=== PATIENT | female | born 1960 | race Caucasian/White ===

== ENCOUNTER 2020-04-13 07:10 | Day surgery (SDC) | payer OTHER ==
[2020-04-13] MEDS ORDERED: CLINDAMYCIN INJ 900 MG in NA CHLORIDE 0.9% 50 ML IV ONE (07:30)
[2020-04-13] MEDS ORDERED: CLINDAMYCIN 900MG/D5W 900 MG/50 ML IVPB IV ONE (07:56)
[2020-04-13] MEDS: Ringers Lactate 1,000 ML IV ONE ×2 (07:58→08:30)
[2020-04-13] MEDS ORDERED: propofoL 200 MG/20 ML VIAL IV ONE (08:25)
[2020-04-13] MEDS ORDERED: FENTANYL CITR 100 MCG/2 ML ONE (08:25)
[2020-04-13] MEDS ORDERED: MIDAZOLAM HCL 2 MG/2 ML INJ ONE (08:26)
[2020-04-13] MEDS ORDERED: LIDOCAINE 1% MPF 5 ML VIAL ONE (08:26)
[2020-04-13] MEDS ORDERED: BUPIVACA 0.25%/EPI 0.0005%/PF 30 ML VIAL ONE (08:31)
[2020-04-13] MEDS ORDERED: dexAMETHasone 10 MG/ML VIAL ONE (09:02)
--- NOTE | 2020-04-13 09:06 | P.OP ---
Preoperative diagnosis: RIGHT Knee Ganglion Cyst Postoperative diagnosis: RIGHT Knee Ganglion Cyst Primary procedure: Wide Excision of RIGHT Knee Ganglion Cyst Secondary procedure: Layered Closure Anesthesia: GETA + Local Estimated blood loss: <5cc Specimen: Knee Cyst Findings: Ganglion cyst of RIGHT knee Complications: None Transferred to: Recovery Room Condition: Good
[2020-04-13] MEDS ORDERED: KETOROLAC 30 MG/ML INJ ONE (09:10)
[2020-04-13] MEDS ORDERED: ONDANSETRON 4 MG/2 ML VIAL ONE (09:10)
[2020-04-13 09:38] VITALS: O2SAT 95
[2020-04-13 11:09] VITALS: BP 139/79; TEMP 96.5
--- NOTE | 2020-04-13 11:10 | OP ---
Date of Procedure: 04/13/2020 Surgeon: Dewayne Grewal MD, Preoperative Diagnosis: Right knee ganglion cyst. Postoperative Diagnosis: Right knee ganglion cyst. Procedure Performed: 1.Wide excision of right ganglion cyst. 2.Multilayered closure. Anesthesia: General endotracheal plus local with 0.25% Marcaine with epinephrine. Estimated Blood Loss: Less than 5 mL. Specimen: Knee cyst consistent with ganglion cyst. Findings: Ganglion cyst of the right knee approximately 2 cm x 2.5 cm in size. Disposition: The patient transferred to recovery room in good condition. Procedure In Detail: After informed consent was obtained, the patient was brought to the operating r oom, prepped and draped in the usual sterile fashion. After adequate anesthesia was achieved, an are a of the medial aspect of the right knee was anesthetized with 0.25% Marcaine, sharply incised and a ganglion cyst was encountered. This was circumferentially dissected intact using both blunt dissecti on and electrocautery. The cyst was found to be approximately 2.5 x 2 cm, it was removed and sent of f for pathologic examination. The area was copiously irrigated multiple times. Hemostasis was achie leeann with electrocautery. Deep dermal layers were closed with interrupted 3-0 Vicryl and skin was tavares sed with 4-0 Monocryl in a running fashion. Dermabond placed over top. The patient tolerated the pr ocedure well without complication, transferred to PACU in good condition. All counts were correct at the end of t he case. TARIK/GEORGINA Voice ID: [id number] Report ID: [id number]
--- OUTSIDE RECORDS SUMMARY | 2020-04-16 02:36 | XMS REPORT | Clinical Summary ---
:1960 Author Organization [facility] Address [address] [place] [address] Care Team Providers Name Role Phone SAVANNA White Primary Care Provider Allergies Not on File Medications Not on file Active Problems Not on file Social History Tobacco Use Types Packs/Day Years Used Date Never Assessed Sex Assigned at Date Recorded Not on file Last Filed Vital Signs Not on file Plan of Treatment Health Maintenance Due Date Last Done Comments CERVICAL CANCER SCREENING 11/06/1983 BREAST CANCER SCREENING 2012 COLONOSCOPY SCREENING 2012 SHINGLES VACCINES (#1) 2012 INFLUENZA VACCINE 02/08/2020 Results Not on fileafter 04/15/2019 Advance Directives For more information, please contact: [phone] Type Date Recorded Patient Shift Superintendent Caustic Cresylate Explanati on Advance Directives, Living Will and Medical Power of Composite Engineer
--- OUTSIDE RECORDS SUMMARY | 2020-04-16 02:36 | XMS REPORT | Continuity of Care Document ---
:1960 Author Organization [facility] Care Team Providers Name Role Phone [facility] Unavailable Un available Problems Problem Status Onset Classification Date Comments Sourc e Date Reported Z87.891 - Active [facility] HISTORY OF NICOTINE D Medications No Data Provided for This Section Allergies, Adverse Reactions, Alerts No Known Medication Allergies Immunizations No Data Provided for This Section Results No Data Provided for This Section Pathology Reports No Data Provided for This Section Diagnostic Reports Report Value Date Source CT Low Dose Lung LUNG SCREENING LOW-DOSE CT THORAX WITHOUT CONTR AST 05/24/2019 [facility] [place] Screening HISTORY: Asymptomatic patien t meeting high-risk criteria for lung screening. Exam: Baseline. COMPARISON: None. TECHNIQUE: Noncontrast, volu metric low-dose CT Chest. This exam was performed according to our departmental dose-optimization program which includes automated exposure control, adjustment of the mA and/ or kV according to patient s ize and/or use of iterative reconstruction technique. IV Contrast: None. DLP: 155 mGy-cm FINDINGS: LUNG NODULES: Detailed below. 1. R lung, 4.3 mm solid, sl ice # 85 on Centricity PACS and slice 92 on DynaCAD PACS 2. R lung, 4 mm solid, slic e # 99 on Centricity PACS and slice 78 on DynaCAD PACS 3. R lung, 3.4 mm solid, sl ice # 26 on Centricity PACS and slice 151 on DynaCAD PACS 4. R lung, 2.7 mm solid, sl ice # 102 on Centricity PACS and slice 75 on DynaCAD PACS Other Lung findings: There a re additional very small, ill-defined, centrilobular nodules within the bilateral upper lobes, right greater than left. There are areas of pleural thickening and adjacent ple ural-parenchymal scarring within the peripheral left upper and lower lobes. Aorta: There is ectasia of t he ascending thoracic aorta with the mid-ascending thoracic aorta measuring up to 4.1 cm in diameter (series 2, image 66). There is atherosclerotic calcification of the aorta. Heart / Pericardium: Unremarkable. Adenopathy: No significant findings. Base of Neck: No significant findings. Upper Abdomen: No significant findings. Osseous structures: No suspicious osteolytic or osteoblastic lesions. LUNG-RADS CATEGORY AND IMPRESSION: 1. Multiple small pulmonary nodules as detailed above. 2. Additional very small, il l-defined, centrilobular nodules within the bilateral upper lobes, right greater than left, which are nonspecific with differential including, but not limited to, smoking-rel ated respiratory bronchiolit is interstitial lung disease (RB-ILD), hypersensitivity pneumonitis, or endobronchial spread of infectious process. 3. Areas of pleural thickeni ng and adjacent pleural-parenchymal scarring within the peripheral left upper and lower lobes. 4. Ectasia of the ascending thoracic aorta with the mid-ascending thoracic aorta measuring up to 4.1 cm in diameter. Given the size of the ascending thoracic aorta, annual CT angiogram or MR angiogram i s recommended according to AHA, STS, ACR, and SI R consensus guidelines. ACR LUNG-RADS Category 2: Ne gative, benign findings with no evidence of malignancy. Suggest next LDCT in 12 months if age still less than 77 years. Category S (Other findings w hich may require urgent additional evaluation): None. Consultation Notes No Data Provided for This Section Discharge Summaries No Data Provided for This Section History and Physicals No Data Provided for This Section Vital Signs No Data Provided for This Section Encounters Location Location Encounter Encounter Reason Attending ADM [place] Stat Source Details Type Number For Provider Date Date Visit [facility] Outpt Diag [id number] Kimberly 05/24 05/25 [facility] [place] Procedures No Data Provided for This Section Assessment and Plan No Data Provided for This Section Plan of Care No Data Provided for This Section Social History Social History Date Source Social History TypeResponse 05/25/2019 [facility] [place] Family History No Data Provided for This Section Advance Directives No Data Provided for This Section Functional Status No Data Provided for This Section
== END 2020-04-13 10:35 | disposition home or self-care (01) ==
LOC: OR 07:10
PROVIDERS: ATTEND Surgery
PROC: 0SBC0ZZ Excision of Right Knee Joint, Open Approach (ICD-10-PCS; principal; 2020-04-13 08:30)
DX: D36.7 Benign neoplasm of other specified sites (principal); Z20.828 Contact with and (suspected) exposure to other viral communicable diseases
CPT/HCPCS: 88305; 27347; U0002; J2704; J2250; J3010; J1100; J7120; J2405; 88304

== ENCOUNTER 2023-09-05 07:00 | Day surgery (SDC) | payer OTHER ==
[2023-09-01 14:00] LABS: Absolute Lymphocytes (CBC) 1.2 K/uL (0.7-4.9); Hematocrit 47.9 % (36.0-45.0); Lymphocytes % 15.3 % (15.3-44.8); MCV 93.6 fL (80-100); Platelets 170 thou/uL (152-406); RBC Red Blood Cell Count 5.12 M/uL (3.86-4.86)
[2023-09-01 14:04] LABS: Potassium 3.3 mEq/L (3.5-5.1)
[2023-09-01 14:19] LABS: Protime INR 0.99
--- NOTE | 2023-09-01 17:21 | RAD REPORT ---
EXAM DESCRIPTION: RAD - Chest Pa And Lat (2 Views) - 09/01/2023 1:51 pm CLINICAL HISTORY: Pre op pending renal angiogram. Hypertension COMPARISON: Chest Pa And Lat (2 Views) dated 03/31/2023; Chest Pa And Lat (2 Views) dated 08/30/2017 TECHNIQUE: PA and lateral views of the chest were obtained. FINDINGS: The lungs are clear apart from stable left peripheral midlung scarring. Heart size is norm al and central vasculature is within normal limits. Sequelae of median sternotomy and aortic valve re placement again seen. No pleural effusion or pneumothorax seen. No acute bony finding noted. IMPRESSION: No acute cardiopulmonary process.
--- NOTE | 2023-09-04 14:38 | EKG ---
Test Date: 2023-09-01 Test Time: 14:30:45 Spiral Winding Machine Helper: RICKI MEASUREMENT RESULTS: Intervals: Rate: 80 ID: [id number] QRSD: 98 QT: 416 QTc: 479 [place]: P: 60 ID: [id number] QRS: -28 T: 102 INTERPRETIVE STATEMENTS: Normal sinus rhythm Possible Left atrial enlargement Left ventricular hypertrophy with repolarization abnormality Inferior infarct, age undetermined Abnormal ECG Compared to ECG 05/01/2007 08:03:14 Early repolarization now present Myocardial infarct finding still present Electronically Signed On 09-04-23 14:29:44 COUNSELOR EDUCATION PROFESSOR by Mj Barrios
[2023-09-05] MEDS ORDERED: VERAPAMIL HCL 10 MG/4 ML VIAL IV ONE (07:10)
[2023-09-05] MEDS ORDERED: HEPA 1000U/500MLS 2,000 UNIT/1,000 ML BAG IV ONE (07:10)
[2023-09-05] MEDS ORDERED: LIDOCAINE 1% 20 ML MDV ONE (07:10)
[2023-09-05] MEDS ORDERED: NITROGLYCERIN/D5W 25 MG/250 ML BTL IV ONE (07:10)
[2023-09-05] MEDS ORDERED: ATROPINE SULF 1 MG/10 ML SYR IV ONE (07:11)
[2023-09-05] MEDS ORDERED: MIDAZOLAM HCL 2 MG/2 ML INJ ONE (07:11)
[2023-09-05] MEDS ORDERED: FENTANYL CITR 100 MCG/2 ML ONE (07:11)
[2023-09-05] MEDS ORDERED: HEPARIN 5000 UNIT/ML 1 ML VIAL ONE (07:11)
[2023-09-05] MEDS ORDERED: HEPARIN 10,000 UNIT/10 ML VIAL IV ONE (07:11)
[2023-09-05] MEDS ORDERED: NA CHLORIDE 0.9% 500 ML ONE (07:21)
[2023-09-05 07:53] VITALS: TEMP 97.8
[2023-09-05 11:22] VITALS: BP 140/75; O2SAT 96
== END 2023-09-05 10:15 | disposition home or self-care (01) ==
LOC: CCL 07:00
PROVIDERS: ATTEND Internal Medicine
DX: I70.1 Atherosclerosis of renal artery (principal); I10 Essential (primary) hypertension; I71.21 Aneurysm of the ascending aorta, without rupture; I35.0 Nonrheumatic aortic (valve) stenosis; I51.7 Cardiomegaly; I48.0 Paroxysmal atrial fibrillation; E78.5 Hyperlipidemia, unspecified; Q27.1 Congenital renal artery stenosis; Z87.891 Personal history of nicotine dependence; Z79.82 Long term (current) use of aspirin; Z79.899 Other long term (current) drug therapy; Z88.1 Allergy status to other antibiotic agents; Z88.2 Allergy status to sulfonamides; Z88.7 Allergy status to serum and vaccine; Z82.49 Family history of ischemic heart disease and other diseases of the circulatory system
CPT/HCPCS: 93005; 85025; 80048; 36415; 85610; 85730; 71046; 36252; 76937; C1893; Q9966; J1644; J2001; J2250; J3010; J7040; J0461

== ENCOUNTER 2024-05-01 13:16 | Emergency (ER) | payer OTHER ==
[2024-05-01] MEDS ORDERED: IBUPROFEN 400 MG TAB ONE (13:50)
[2024-05-01] MEDS ORDERED: IBUPROFEN 200 MG TAB PO ONE (13:50)
--- NOTE | 2024-05-01 14:32 | RAD REPORT ---
Procedure: Chest Single View HISTORY: Shortness of breath. COMPARISON: August 2023 FINDINGS: The lungs appear clear of acute infiltrate. No significant pleural effusion noted. The heart is mildly enlarged. Post surgical changes involving the chest. IMPRESSION: No acute abnormality is displayed.
--- NOTE | 2024-05-01 15:08 | EDPHYS ---
Physician Documentation [facility] Name: Cathy Clements Age: 63 yrs Sex: Female : 1960 Arrival Date: 05/01/2024 Time: 13:16 Bed 20 Private MD: ED Physician Harish Price HPI: 05/01 15:03 This 63 yrs old Female presents to ER via Ambulatory with complaints of Fever, Nausea, rn Flu Symptoms. 15:04 The patient reports fever, not measured (subjective). Onset: The symptoms/episode rn began/occurred 3 day(s) ago. Modifying factors: there are no obvious modifying factors. Severity of symptoms: At their worst the symptoms were mild in the emergency department the symptoms are unchanged. The patient has experienced similar episodes in the past. Patient reports 2 or 3 days of feeling sick, reports cough and congestion, myalgias, malaise, headache, fatigue. Seen at urgent care with negative swabs, no x-ray ordered, prescribed steroids and Zithromax. On day 2 of Zithromax and steroids. Symptoms have not resolved so came in for further evaluation. Denies any vomiting or diarrhea.. Historical: - Allergies: 13:27 Keflex; db - PMHx: 13:27 Hypertensive disorder; AORTIC HEART VALVE PROBLEM; db - PSHx: 13:27 AORTIC VALVE REPLACEMENT; db - Immunization history:: Adult Immunizations unknown. - Infectious Disease History:: Denies. - Social history:: Smoking status: Patient reports the use of cigarette tobacco products, smokes one pack cigarettes per day. - Family history:: not pertinent. - Hospitalizations: : No recent hospitalization is reported. ROS: 15:04 Constitutional: Positive for fever and chills and myalgias Cardiovascular: Negative for rn chest pain, palpitations, and edema, Respiratory: Positive for cough, negative for shortness of breath Abdomen/GI: Negative for abdominal pain, nausea, vomiting, diarrhea, and constipation, MS/Extremity: Negative for injury and deformity, Skin: Negative for injury, rash, and discoloration, Neuro: Positive for headache and generalized weakness Exam: 15:04 Constitutional: This is a well developed, well nourished patient who is awake, alert, rn and in no acute distress. Head/Face: Normocephalic, atraumatic. Cardiovascular: Regular rate and rhythm. No pulse deficits. Respiratory: Mild tachypnea, no wheezing or retractions Abdomen/GI: Soft, non-tender Neuro: Awake and alert, GCS 15 Vital Signs: 13:27 BP 117 / 75; Pulse 95; Resp 18; Temp 101.3(O); Pulse Ox 95% ; Weight 95.71 kg; Height 5 db ft. 7 in. ; 14:30 BP 110 / 69; Pulse 88; Resp 18; Temp 100.1; Pulse Ox 94% ; db 13:27 Body Mass Index 33.05 (95.71 kg, 170.18 cm) db MDM: 13:21 Medical Screening Exam initiated rn 15:04 Differential diagnosis: viral Infection, bacterial infection, URI, bronchitis, rn pneumonia. Data reviewed: vital signs, nurses notes, radiologic studies, plain films, and as a result, I will discharge patient. Counseling: I had a detailed discussion with the patient and/or guardian regarding the historical points, exam findings, and any diagnostic results supporting the discharge/admit diagnosis, radiology results, the need for outpatient follow up, to return to the emergency department if symptoms worsen or persist or if there are any questions or concerns that arise at home. Special discussion: I discussed with the patient/guardian in detail that at this point there is no indication for admission to the hospital. It is understood, however, that if the symptoms persist or worsen the patient needs to return immediately for re-evaluation. ED course: Patient already on steroids and Zithromax, x-ray ordered to rule out pneumonia. Chest x-ray images negative for pneumonia or pneumothorax. Will discharge home with continuation of steroids and antibiotics. Has inhaler for COPD. Denies any dyspnea compared to her baseline COPD.. 05/01 13:45 Order name: XRAY Chest (1 view); Complete Time: 14:34 rn Administered Medications: 13:50 Drug: Ibuprofen PO 600 mg PO once Route: PO; db 15:19 Follow up: Response: No adverse reaction db Disposition Summary: 05/01/24 15:07 Discharge Ordered Notes: Location: Home rn Problem: new rn Symptoms: are unchanged rn Condition: Stable rn Diagnosis - Fever, unspecified rn - Cough rn Followup: rn - With: Private Physician - When: As needed - Reason: Recheck today's complaints, Re-evaluation by your physician Discharge Instructions: - Discharge Summary Sheet rn - Chronic Obstructive Pulmonary Disease rn - Fever, Adult rn - Cough, Adult rn Forms: - Medication Reconciliation Form rn - Antibiotic psychiatric arnp - Prescription Opioid Use rn - Patient Portal Instructions rn - Leadership Thank You Letter rn Signatures: Dispatcher [employer] Harish Kiser MD MD rn Benton, Danielle, RN RN db Corrections: (The following items were deleted from the chart) 13:41 13:27 Allergies: No Known Allergies; db db 13:45 13:45 Chest Single View+RAD.RAD.[email or web address] ordered. EDMS EDMS
--- NOTE | 2024-05-01 15:08 | ER ---
Nurse's Notes [facility] Name: Cathy Clements Age: 63 yrs Sex: Female : 1960 Arrival Date: 05/01/2024 Time: 13:16 Bed 20 Private MD: Diagnosis: Fever, unspecified;Cough Presentation: 05/01 13:27 Chief complaint: Chief complaint: Patient states: FLU/COVID SYMPTOMS SINCE MONDAY. NEG db MONDAY AT NEXT CARE. PRESCRIBED ZITHROMYCIN AND PREDNISONE. NOT FEELING BETTER. TODAY HAS A HEADACHE AND FEVER AT HOME 100.7. 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 13:27 Coronavirus screen: Client denies travel out of the [place] in the last 14 days. At this db time, the client does not indicate any symptoms associated with coronavirus-19. Ebola Screen: Patient negative for fever greater than or equal to 101.5 degrees Fahrenheit, and additional compatible Ebola Virus Disease symptoms Patient denies exposure to infectious person. Patient denies travel to an Ebola-affected area in the 21 days before illness onset. No symptoms or risks identified at this time. Initial Sepsis Screen: Does the patient meet any 2 criteria? No. Patient's initial sepsis screen is negative. Does the patient have a suspected source of infection? No. Patient's initial sepsis screen is negative. Risk Assessment: Do you want to hurt yourself or someone else? Patient reports no desire to harm self or others. Onset of symptoms was May 01, 2024. 13:27 Method Of Arrival: Ambulatory db 13:27 Acuity: BRODIE 3 db Triage Assessment: 13:27 General: Appears in no apparent distress. comfortable, Behavior is calm, cooperative, db appropriate for age. Pain: Complains of pain in BODY ACHES. Neuro: Level of Consciousness is awake, alert, obeys commands, Oriented to person, place, time, situation. Respiratory: Airway is patent Respiratory effort is even, unlabored, Respiratory pattern is regular, symmetrical. GI: Abdomen is non-distended, Reports nausea. Historical: - Allergies: 13: Keflex; db - PMHx: 13:27 Hypertensive disorder; AORTIC HEART VALVE PROBLEM; db - PSHx: 13:27 AORTIC VALVE REPLACEMENT; db - Immunization history:: Adult Immunizations unknown. - Infectious Disease History:: Denies. - Social history:: Smoking status: Patient reports the use of cigarette tobacco products, smokes one pack cigarettes per day. - Family history:: not pertinent. - Hospitalizations: : No recent hospitalization is reported. Screenin:45 [facility] ED Fall Risk Assessment (Adult) History of falling in the last 3 months, db including since admission No falls in past 3 months (0 pts) Confusion or Disorientation No (0 pts) Intoxicated or Sedated No (0 pts) Impaired Gait No (0 pts) Mobility Assist Device Used No (0 pt) Altered Elimination No (0 pt) Score/Fall Risk Level 0 - 2 = Low Risk Oriented to surroundings, Maintained a safe environment. 15:17 Abuse screen: Denies threats or abuse. Denies injuries from another. Nutritional db screening: No deficits noted. Tuberculosis screening: No symptoms or risk factors identified. Assessment: 13:30 Reassessment: PATIENT IS NOT IN ROOM AT THIS TIME FOR ASSESSMENT. db 13:44 Reassessment: SEE TRIAGE FOR INITIAL ASSESSMENT. db 15:17 Reassessment: Patient appears in no apparent distress at this time. Patient and/or db family updated on plan of care and expected duration. Pain level reassessed. Patient is alert, oriented x 3, equal unlabored respirations, skin warm/dry/pink. General: Appears in no apparent distress. comfortable, Behavior is calm, cooperative. Neuro: Level of Consciousness is awake, alert, obeys commands, Oriented to person, place, time, situation. Respiratory: Airway is patent Respiratory effort is even, unlabored, Respiratory pattern is regular, symmetrical. Vital Signs: 13:27 BP 117 / 75; Pulse 95; Resp 18; Temp 101.3(O); Pulse Ox 95% ; Weight 95.71 kg; Height 5 db ft. 7 in. ; 14:30 BP 110 / 69; Pulse 88; Resp 18; Temp 100.1; Pulse Ox 94% ; db 13:27 Body Mass Index 33.05 (95.71 kg, 170.18 cm) db ED Course: 13:19 Patient arrived in ED. mr 13:21 Harish Price MD is Attending Physician. rn 13:27 Arm band placed on Patient placed in an exam room. db 13:30 Deanna Verde, MARIA DEL CARMEN is Primary Nurse. db 13:43 Triage completed. db 14:22 XRAY Chest (1 view) In Process Unspecified. EDMS 15:17 Patient has correct armband on for positive identification. Bed in low position. Call db light in reach. Side rails up X 1. Provided Education on: DISCHARGE. Pulse ox on. NIBP on. Pillow given. 15:17 No provider procedures requiring assistance completed. Patient did not have IV access db during this emergency room visit. Administered Medications: 13:50 Drug: Ibuprofen PO 600 mg PO once Route: PO; db 15:19 Follow up: Response: No adverse reaction db Medication: 15:17 VIS not applicable for this client. db Outcome: 15:07 Discharge ordered by . rn 15:17 Discharged to home ambulatory, db 15:17 Condition: stable 15:17 Discharge instructions given to patient, Instructed on discharge instructions, follow up and referral plans. 15:19 Patient left the ED. db Signatures: Dispatcher [employer] EDNV Nannette Wright, Reg Reg Harish Fang MD MD rn Benton, Danielle, RN RN db Corrections: (The following items were deleted from the chart) 13:41 13:27 Allergies: No Known Allergies; db db 13:43 13:27 Chief complaint: db db
[2024-05-01 20:43] VITALS: BP 110/69; TEMP 100.1; O2SAT 94
== END 2024-05-01 15:19 | disposition home or self-care (01) ==
LOC: ER 13:16
DX: R50.9 Fever, unspecified (principal); R05.9 Cough, unspecified; I10 Essential (primary) hypertension; F17.210 Nicotine dependence, cigarettes, uncomplicated
CPT/HCPCS: 71045